=== PATIENT | male | born 1940 | race Caucasian/White ===

== ENCOUNTER 2016-09-22 17:37 | Emergency (ER) | payer MEDICARE, OTHER ==
[~2016-09-22 17:37] MED LIST: ALTA5 PO; ASA5GR PO; ASAB PO; BACDS PO; C5 PO; COUMADIN7.5 MG PO; CRESTOR10 PO; DIABETA5 PO; ELIQUIS 5 MG TAB5 MG PO; FARXIGA5 PO; FLOMAX4 PO; GLUCPH PO; ICY HOT16 % TOP; IMDUR60 PO; JANTOVEN10 MG PO; JANTOVEN7.5 MG PO; JANUMET XR 50-1 EAC1 PO; JANUMET1 TA1 PO; JANUMET1 TAB PO; LOP50 PO; LOPID6 PO; NEUR100 PO; NITROSTAT0.4 MG SL; NORCO1 TA1 PO; PLAVIX PO; PR25R PR; PRAV10 PO; SYN.05 PO; SYN.15 PO; SYNTHROID175 MCG PO; [UNRECOGNIZED DRUG - REMARK] TOP
[2016-09-22 18:52] LABS: BASOPHILS 0.2 %; BASOPHILS ABSOLUTE 0.02 10/3/uL (0.0-0.16); EOSINOPHILS 4.1 %; EOSINOPHILS ABSOLUTE 0.41 10/3/uL (0.0-0.53); HEMATOCRIT 42.6 % (40.0-51.0); IMMATURE GRANULOCYTES 0.2 %; IMMATURE GRANULOCYTES ABSOLUTE 0.02 10/3/uL (0.0-0.11); LYMPHOCYTES 8.5 %; LYMPHOCYTES ABSOLUTE 0.86 10/3/uL (0.67-4.30); MEAN CORPUS HGB CONC 32.9 g/dL (32.0-36.0); MEAN CORPUSCULAR HEMOGLOB 26.8 pg (26.0-34.0); MEAN CORPUSCULAR VOLUME 81.5 fL (80-100); MEAN PLATELET VOLUME 9.8 fL (9.2-13.0); MONOCYTES 6.5 %; MONOCYTES ABSOLUTE 0.66 10/3/uL (0.21-1.20); NEUTROPHILS 80.5 %; NEUTROPHILS ABSOLUTE 8.15 10/3/uL (2.02-8.40); PLATELET COUNT 209 10/3/uL (150-400); RBC DISTRIBUTION WIDTH 14.2 % (12.0-16.0); RED CELL COUNT 5.23 10/6/uL (4.7-6.1)
[2016-09-22 18:53] LABS: MANUAL DIFF NO %; WHITE BLOOD CELLS 10.1 10/3/uL (4.5-10.5)
[2016-09-22 19:08] LABS: A/G RATIO 0.9 (0.7-1.9); ALBUMIN 3.8 G/DL (3.5-5.0); CALCIUM, SERUM 9.5 MG/DL (8.5-10.4); CHLORIDE, SERUM 105 MMOL/L (96-112); CO2 (CARBON DIOXIDE) 23 MMOL/L (24-34); CREATININE 1.25 MG/DL (0.70-1.30); GFR AFRICAN AMERICAN 65 ML/MIN (>=60); GFR NON AFRICAN AMERICAN 56 ML/MIN (>=60); GLOBULIN 4.1 G/DL (2.5-4.1); GLUCOSE, SERUM 162 MG/DL (60-99); SGOT(AST) 25 U/L (5-40); SGPT(ALT) 27 U/L (5-65); SODIUM, SERUM 139 MMOL/L (135-148); TOTAL BILIRUBIN 1.1 MG/DL (0-1.2); TOTAL PROTEIN 7.9 G/DL (6.0-8.5)
[2016-09-22 19:09] LABS: ALKALINE PHOSPHATASE 54 U/L (45-117); BUN (BLOOD UREA NITROGEN) 15 MG/DL (6-23)
[2016-09-22 19:16] LABS: ASCORBIC ACID (UR NOT ORDER) NEG (NEG); BILIRUBIN, URINE NEGATIVE (NEG); ER URINALYSIS TAT 0 Hrs 23 Mins; KETONE, URINE NEGATIVE (NEG); LEUKOCYTE ESTERASE(NOT OR LARGE (NEG); NITRITE (URINE) POS (NEG)
[2016-09-22 19:22] LABS: WBC (NOT ORDERED) (RFLEX) > 182 (0-5)
[2016-09-22 19:24] LABS: BAND NEUTROPHILS 1 %; EOSINOPHILS 3 %; ER DIFF TAT 0 Hrs 37 Mins; LYMPHOCYTES 2 %; MONOCYTES 6 %; MONOCYTES ABSOLUTE (CALC) 0.61 10/3/uL (0.21-1.20); NEUTROPHILS ABSOLUTE (CALC) 8.99 10/3/uL (2.02-8.40); PLATELET ESTIMATE ADQ (ADEQUATE); RBC MORPHOLOGY NORM (NORMAL); SEGMENTED NEUTROPHIL (0) 88 %; TOTAL NUCLEATED CELLS 100
[2016-09-22 19:24] LABS: INFLUENZA A SCREEN NEGATIVE (NEGATIVE); INFLUENZA B SCREEN NEGATIVE (NEGATIVE)
[2016-12-17] MEDS ORDERED: ACET500CAP PO (23:00)
[2016-12-17] MEDS ORDERED: CLEOCIN300 MG PO (23:00)
[2016-12-17] MEDS ORDERED: PLAVIX PO (23:01)
[2016-12-17] MEDS ORDERED: LOPID6 PO (23:01)
[2016-12-17] MEDS ORDERED: JARDI10T PO (23:01)
[2016-12-17] MEDS ORDERED: PRAV10 PO (23:02)
[2016-12-17] MEDS ORDERED: IMDUR60 PO (23:02)
[2016-12-17] MEDS ORDERED: ALTACE10 MG PO (23:02)
[2016-12-17] MEDS ORDERED: DIABETA5 PO (23:02)
[2016-12-17] MEDS ORDERED: LEVOTHYROXIN150 MCG PO (23:02)
[2016-12-17] MEDS ORDERED: JANUMET1 TA1 PO (23:03)
[2016-12-17] MEDS ORDERED: COUMADIN7.5 MG PO (23:03)
[2016-12-17] MEDS ORDERED: FLOMAX4 PO (23:03)
[2016-12-17] MEDS ORDERED: C5 PO (23:03)
== END 2016-09-22 20:24 | disposition home or self-care (01) ==
LOC: ER 17:37
PROVIDERS: Emergency Medicine
DX: N39.0 Urinary tract infection, site not specified (principal); I10 Essential (primary) hypertension; E10.9 Type 1 diabetes mellitus without complications; Z87.891 Personal history of nicotine dependence; Z88.0 Allergy status to penicillin; Z79.01 Long term (current) use of anticoagulants; Z79.899 Other long term (current) drug therapy
CPT/HCPCS: 71010; 80053; 81001; 85025; 87040; 87070; 87077; 87086; 87186; 87804; 87880; 93005; 96374; 99284; A9270-GY

== ENCOUNTER 2016-10-22 16:51 | Inpatient (IN) | payer MEDICARE, OTHER ==
--- NOTE | ~2016-10-22 | CN ---
Consultation Report [facility] [address] [place]. [address] NAME: SASKIA ENNIS : 42 STATUS : ADM IN [facility]#: [id number] AGE: 76 ADM/REG DATE : 10/23/16 MR#: [id number] REPORT SERV DATE: 10/24/16 DICTATED BY: DEISY HAMILTON DATE: 10/24/16 REPORT STATUS : Draft TRANSCRIBED BY: MODL DATE: 10/24/16 GI CONSULTATION NOTE DATE OF CONSULTATION: 10/24/2016 REASON FOR CONSULTATION: Coffee ground emesis, dark stool. HISTORY OF PRESENT ILLNESS: Mr. Ennis is a 76-year-old white male with a history of coronary artery disease, SC in 2015, hypertension, peripheral vascular disease. He had been on Coumadin previously, but transitioned to Eliquis and remained on Plavix as well. He presented to [facility] with coffee ground, dark stool, and his hemoglobin and hematocrit today are 10.1 and 30.5, platelets 198. INR is 1.7. BUN creatinine ratio on admission was 44 and 1.47. It is currently 32 and 1.29. Denies any further overt bleeding. Denies any bright red blood. He has had colonoscopy in the past, but has been at least several years and cannot recall results. No prior endoscopy. PAST SURGICAL HISTORY: AAA repair, left lower extremity revascularization with Dr. Renee, cardiac ablation with Dr. Knight. PAST MEDICAL HISTORY: Coronary artery disease with status post SC, hypertension, peripheral vascular disease, atrial fibrillation. SOCIAL HISTORY: Quit tobacco in his 60s. Daughter is an ICU nurse at [employer]. FAMILY HISTORY: Prostate cancer, AAA, breast cancer, coronary artery disease. MEDICATIONS: Reviewed. ALLERGIES: REVIEWED. PHYSICAL EXAMINATION: VITAL SIGNS: The patient is afebrile. His vital signs are stable. GENERAL: The patient is awake, alert, and oriented x3. Well developed, well nourished, no acute distress. HEENT: Atraumatic, normocephalic. Anicteric. Mucous membranes moist. CARDIAC: S1, S2. CHEST: Clear. ABDOMEN: Soft, nontender, nondistended. Bowel sounds normoactive. LABORATORY DATA: Show WBC 5.7, hemoglobin 10.1, hematocrit 30.5, platelets 198. INR is 1.7. Sodium 136, potassium 4.5, chloride 107, bicarb 20, BUN 32, creatinine 1.29, glucose 146. IMPRESSION AND PLAN: Concern for upper gastrointestinal bleed given history of coffee grounds and dark stool while on Plavix as well as Eliquis. These have been held. Continue Consultation Report [facility] [address] [place]. [address] NAME: SASKIA ENNIS : 42 STATUS : ADM IN PAT#: [id number] AGE: 76 ADM/REG DATE : 10/23/16 MR#: [id number] REPORT SERV DATE: 10/24/16 DICTATED BY: DEISY HAMILTON DATE: 10/24/16 REPORT STATUS : Draft TRANSCRIBED BY: MODL DATE: 10/24/16 monitor serial H and H, and transfuse as needed. Continue Protonix drip. I will make n.p.o. after midnight for EGD with anesthesia to sedate tomorrow to follow my scheduled cases. I reviewed the indications, procedure, risks, benefits, and alternatives and he is agreeable to proceed. Questions and concerns were addressed. CS/SHIVA Deisy Hamilton MD / [id number] CC: MD Deepthi Aguilar Paul E
--- NOTE | ~2016-10-22 | HP ---
History And Physical [address] [address] NAME: SASKIA ENNIS : 42 STATUS : ADM [facility]y PAT#: [id number] AGE: 76 ADM/REG DATE : 10/22/16 MR#: [id number] REPORT SERV DATE: 10/23/16 DICTATED BY: ARIADNE MALONE DATE: 10/22/16 REPORT STATUS : Draft TRANSCRIBED BY: MODL DATE: 10/22/16 DATE OF ADMISSION: 10/22/2016 CHIEF COMPLAINT: Vomiting, coffee emesis, and dark stools. HISTORY OF PRESENT ILLNESS: The patient is a 76-year-old male with past medical history of DE, hypertension, PVD with multiple stents in leg and aneurysm in the aorta as well as recent history of atrial fibrillation with ablation, on anticoagulation with Coumadin, but was also on bridge therapy with Dr. Knight, with Eliquis. The patient was stopped on Eliquis earlier today, but after visit, he has had numerous amounts of vomiting with coffee emesis and dark stools subsequently. No dizziness. Symptoms have been constant and moderate. No pain or radiating symptoms. No diarrhea, shortness of breath, or palpitations. There is nothing worsening or relieving the symptoms. The patient has never had symptoms like this before. The patient has been feeling overall decreased on his general state for the last month. REVIEW OF SYSTEMS: For additional 10-point review of systems negative for that noted in the HPI. PAST MEDICAL HISTORY: As above. SURGERIES: AAA repair, left lower extremity revascularization by Dr. Renee, ablation by Dr. Knight. SOCIAL HISTORY: , accompanied by . Quit smoking in 60s. No alcohol or illicits. Daughter, ICU nurse at [employer]. FAMILY HISTORY: Prostate cancer, AAA, breast cancer, heart attack. ALLERGIES: PENICILLIN. EKG, 106, QTC 446. HOME MEDICATIONS: Tylenol, vitamin D, Plavix, Jardiance, Lopid, DiaBeta, Imdur, Synthroid, Nitrostat, pravastatin, ramipril, Janumet, Flomax, Coumadin, recently stop Eliquis today, but no intention restarting as this was for bridge therapy for subtherapeutic INR. PHYSICAL EXAMINATION: VITAL SIGNS: Blood pressure 129/73, temperature 98.3, pulse 97, respirations 16, O2 saturations 97% on room air. GENERAL: No acute distress. Calm, pleasant. HEAD: Normocephalic, atraumatic. EYES: No scleral icterus. EOMI. ENT: Nares patent. Tongue midline. Moist mucous membranes. RESPIRATORY: Clear to auscultation. No wheezes, rales, rhonchi. CV: Regular rate. No rubs. 1:1 beat pulse ratio. Cap refill less than 2 seconds. History And Physical [address] [place]. [address] NAME: SASKIA ENNIS : 42 STATUS : ADM Zachery PAT#: [id number] AGE: 76 ADM/REG DATE : 10/22/16 MR#: [id number] REPORT SERV DATE: 10/23/16 DICTATED BY: ARIADNE MALONE DATE: 10/22/16 REPORT STATUS : Draft TRANSCRIBED BY: SHIVA DATE: 10/22/16 GI: Soft, nontender, nondistended. Bowel sounds positive. : Deferred. MUSCULOSKELETAL: Moves all extremities x4. SKIN: Warm and dry. A mild paleness in nail beds. LYMPH: No cervical lymphadenopathy. HEME: No bleeding or bruising. NEURO: Alert and oriented. Moves all extremities x4. Mild decreased hearing acuity. PSYCH: Appropriate mood and affect. LABORATORY DATA: CMP: Sodium 136, potassium 4.9, chloride 106, BUN and creatinine 44 and 1.47, carbon dioxide 21, glucose 204. AST and LFTs within normal limits. CBC: WBC count 7.8, H and H 13.2 and 39.7, platelets 239. INR 3.2. ASSESSMENT: 1. Acute gastrointestinal bleed. 2. Supratherapeutic INR. 3. Acute kidney injury. 4. Diabetes, type 2. 5. Atrial fibrillation. PLAN: 1. For GI bleed. H and H, fair right now, but we will continue trending Protonix drip with likely upper sources in a patient with dysphagia, coffee emesis. Gentle IV fluids with cardiac history. The patient has been on triple therapy with Plavix. Eliquis for bridge. For INR on Coumadin and was supratherapeutic on Coumadin at 3.6, currently 3.2. Hold Eliquis and Coumadin. The patient does have significant peripheral arterial disease and coronary disease history. 2. Supratherapeutic INR. Hold medications and we will stop dual anticoagulation. 3. Acute kidney injury. Monitor IV fluids and diabetes type 2, sliding scale insulin. 4. Atrial fibrillation. Sinus tachycardia. Monitor lytes, on warfarin. DDN/MODL Ariadne Malone MD / [id number] CC: MD Harsh Mullins
--- NOTE | ~2016-10-22 | DS ---
Discharge Summary [facility] [address] [place]. [address] NAME: SASKIA ENNIS : 42 STATUS : DIS IN PAT#: [id number] AGE: 76 ADM/REG DATE : 10/23/16 MR#: [id number] REPORT SERV DATE: 10/27/16 DICTATED BY: ANTHONY PASCAL DATE: 10/26/16 REPORT STATUS : Draft TRANSCRIBED BY: MODL DATE: 10/26/16 ADMISSION DATE: 10/23/2016 DISCHARGE DATE: 10/26/2016 PROCEDURES DONE: On 10/24/2016, upper GI by Dr. Chase. FINDINGS: Examining esophagus was normal. Z-line was found to be 46 cm from the incisors. Mild inflammation characterized by erythema was found at the gastric body and in the gastric antrum. No biopsies or other specimens were collected for this exam. Three small angioectasias with bleeding were found in the gastric body. Hemostasis was achieved with administration of argon plasma coagulation. No estimated blood loss. A sessile 7 mm polyp with no stigma of recent bleeding was found in the gastric fundus. Biopsies were taken with cold forceps for histology. Estimated blood loss, none. Duodenal bulb and second part of duodenum were normal. No biopsies and other specimens were collected for this exam. Impression: Normal esophagus. Z-line at 46 cm from the incisors. Gastritis. No specimens collected. Three bleeding angioectasias in the stomach. A single gastric polyp biopsies. Normal duodenal bulb and second part of duodenum. No specimen collected. CONSULT: Darcy Chase M.D., for GI. REASON FOR ADMISSION: Vomiting, coffee emesis, and dark stools. HISTORY OF HOSPITAL STAY: A 76-year-old white male with past medical history of coronary artery disease status post ND, peripheral vascular disease with multiple stents in the leg, hypertension, history of AAA, history of AFib status post ablation on Coumadin, presenting with vomiting, coffee emesis, and dark stools. The patient was admitted for further evaluation of hematemesis. The patient had serial H and H done which showed no significant blood requiring transfusion. The patient's Coumadin had to be held during the hospital stay in order to do the EGD safely. GI was consulted. The patient underwent EGD on 10/24/2016. The cause of the bleed was secondary to three angioectasias in the gastric antrum. The patient underwent cauterization without any complications. More importantly, the patient has been advised to follow up with his Vascular surgeon, who prescribed him the Coumadin. Questionable, we will need to have a discussion whether continuing Coumadin with a history of AVM malformation. DISPOSITION: The patient is feeling, no complaints. ACTIVITY: As tolerated. DIET: Diabetic. INSTRUCTIONS UPON DISCHARGE: 1. The patient to follow up with Vascular within one to two weeks time. 2. The patient to follow up with GI within one to two weeks time. Discharge Summary [facility] [address] [facility] [place]. [address] NAME: SASKIA ENNIS : 42 STATUS : DIS IN PAT#: [id number] AGE: 76 ADM/REG DATE : 10/23/16 MR#: [id number] REPORT SERV DATE: 10/27/16 DICTATED BY: ANTHONY PASCAL DATE: 10/26/16 REPORT STATUS : Draft TRANSCRIBED BY: SHIVA DATE: 10/26/16 MEDICATIONS UPON DISCHARGE: 1. Lopid 600 mg p.o. q.h.s. 2. Imdur 60 mg p.o. daily. 3. Synthroid 150 mcg daily. 4. Pravachol 10 mg p.o. q.h.s. 5. Altace 10 mg p.o. q.h.s. 6. Flomax 0.4 mg p.o. q.h.s. 7. Coumadin 7.5 mg Saturday, Saturday, , and Saturday. 8. Glyburide 5 mg p.o. q.h.s. 9. Plavix 75 mg p.o. daily. 10.Nitro sublingual p.r.n. 11.Janumet mg p.o. with breakfast and supper. 12.Coumadin 5 mg Saturday, Saturday, and Saturday. 13.Jardiance 10 mg p.o. daily. 14.Vitamin D 5000 units p.o. q.2 days. 15.Tylenol 650 mg p.o. daily p.r.n. DIAGNOSES UPON DISCHARGE: 1. Hematemesis and melena secondary to arteriovenous malformation. 2. Arteriovenous malformation. 3. 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 4. Atrial fibrillation. 5. Peripheral vascular disease status post stents. 6. Hypertension. 7. Diabetes type 2. 8. Coronary artery disease status post myocardial infarction. FBJ/MODL Anthony Pascal MD / [id number] CC: MD Harsh Aguilar, PHD
--- NOTE | ~2016-10-22 | EGD ---
EGD REPORT [facility] [address] [place] [address] NAME: SASKIA ENNIS : 42 STATUS : ADM IN PAT#: [id number] AGE: 76 ADM/REG DATE : 10/23/16 MR#: [id number] REPORT SERV DATE: 10/25/16 DICTATED BY: DEISY HAMILTON DATE: 10/25/16 REPORT STATUS : Draft TRANSCRIBED BY: [employer] DATE: 10/25/16 [facility] Patient Name: Saskia Ennis Date of : 1940 Attending MD: DEISY HAMILTON, Procedure Date No Time: 10/25/2016 Procedure: Upper GI endoscopy Indications: Anemia, Coffee-ground emesis Referring MD: Harsh Lacey MD Medicines: Propofol per Anesthesia Complications: No immediate complications. Estimated blood loss: None. Procedure: Pre-Anesthesia Assessment: - ASA Grade Assessment: III - A patient with severe systemic disease. After obtaining informed consent, the endoscope was passed under direct vision. Throughout the procedure, the patient's blood pressure, pulse, and oxygen saturations were monitored continuously. The GIF [id number] was introduced through the mouth, and advanced to the second part of duodenum. The upper GI endoscopy was accomplished with ease. The patient tolerated the procedure well. Findings: The examined esophagus was normal. The Z-line was found 46 cm from the incisors. Mild inflammation characterized by erythema was found in the gastric body and in the gastric antrum. No biopsies or other specimens were collected for this exam. Three small angioectasias with bleeding were found in the gastric body. Hemostasis was achieved with administration of argon plasma coagulation. Estimated blood loss: none. A single 7 mm sessile polyp with no stigmata of recent bleeding was found in the gastric fundus. Biopsies were taken with a cold forceps for histology. Estimated blood loss: none. The duodenal bulb and 2nd part of the duodenum were normal. No biopsies or other specimens were collected for this exam. Impression: - Normal esophagus. - Z-line 46 cm from the incisors. - Gastritis. No specimens collected. - Three bleeding angioectasias in the stomach. - A single gastric polyp. Biopsied. - Normal duodenal bulb and 2nd part of the duodenum. No specimens collected. EGD REPORT [address] [place]. [address] NAME: SASKIA ENNIS : 42 STATUS : ADM IN [facility]#: [id number] AGE: 76 ADM/REG DATE : 10/23/16 MR#: [id number] REPORT SERV DATE: 10/25/16 DICTATED BY: DEISY HAMILTON DATE: 10/25/16 REPORT STATUS : Draft TRANSCRIBED BY: [employer] DATE: 10/25/16 Recommendation: - Return patient to [facility] for [facility] care. - Full liquid diet today. - Continue present medications. - Await pathology results. Procedure Code(s): --- Professional --- 32695, Esophagogastroduodenoscopy, flexible, transoral; with biopsy, single or multiple Diagnosis Code(s): --- Professional --- K29.70, Gastritis, unspecified, without bleeding K31.811, Angiodysplasia of stomach and duodenum with bleeding K31.7, Polyp of stomach and duodenum D64.9, Anemia, unspecified K92.0, Hematemesis CPT copyright 2013 [employer]. All rights reserved. The codes documented in this report are preliminary and upon rotary shear operator review may be revised to meet current compliance requirements. DEISY HAMILTON, 10/25/2016 2:05 PM This report has been signed electronically. Number of Addenda: 0 Note Initiated On: 10/25/2016 1:40 PM Scope Withdrawal Time 0 hours 0 minutes 0 seconds [address] [id number]
[2016-10-22 17:14] LABS: BASOPHILS 0.1 %; BASOPHILS ABSOLUTE 0.01 10/3/uL (0.0-0.16); EOSINOPHILS 0.1 %; EOSINOPHILS ABSOLUTE 0.01 10/3/uL (0.0-0.53); ER CBC TAT 0 Hrs 05 Mins; HEMATOCRIT 39.7 % (40.0-51.0); HEMOGLOBIN 13.2 g/dL (13.6-17.8); IMMATURE GRANULOCYTES 0.4 %; IMMATURE GRANULOCYTES ABSOLUTE 0.03 10/3/uL (0.0-0.11); LYMPHOCYTES 15.6 %; LYMPHOCYTES ABSOLUTE 1.22 10/3/uL (0.67-4.30); MEAN CORPUS HGB CONC 33.2 g/dL (32.0-36.0); MEAN CORPUSCULAR HEMOGLOB 27.1 pg (26.0-34.0); MEAN CORPUSCULAR VOLUME 81.5 fL (80-100); MEAN PLATELET VOLUME 9.4 fL (9.2-13.0); MONOCYTES 6.3 %; MONOCYTES ABSOLUTE 0.49 10/3/uL (0.21-1.20); NEUTROPHILS 77.5 %; NEUTROPHILS ABSOLUTE 6.06 10/3/uL (2.02-8.40); PLATELET COUNT 239 10/3/uL (150-400); RBC DISTRIBUTION WIDTH 15.3 % (12.0-16.0); RED CELL COUNT 4.87 10/6/uL (4.7-6.1); WHITE BLOOD CELLS 7.8 10/3/uL (4.5-10.5)
[2016-10-22 17:21] LABS: MANUAL DIFF NO %
[2016-10-22 17:27] LABS: INTERNATIONAL NORMAL RATI 3.2 UNITS (-); PARTIAL THROMBO TIME 47.2 SEC (22.5-37.2)
[2016-10-22 17:29] LABS: A/G RATIO 0.8 (0.7-1.9); ALBUMIN 3.7 G/DL (3.5-5.0); ALKALINE PHOSPHATASE 46 U/L (45-117); CALCIUM, SERUM 9.9 MG/DL (8.5-10.4); CHLORIDE, SERUM 106 MMOL/L (96-112); CO2 (CARBON DIOXIDE) 21 MMOL/L (24-34); CREATININE 1.47 MG/DL (0.70-1.30); GFR AFRICAN AMERICAN 53 ML/MIN (>=60); GFR NON AFRICAN AMERICAN 46 ML/MIN (>=60); GLOBULIN 4.4 G/DL (2.5-4.1); SGOT(AST) 9 U/L (5-40); SGPT(ALT) 17 U/L (5-65); SODIUM, SERUM 136 MMOL/L (135-148); TOTAL PROTEIN 8.1 G/DL (6.0-8.5)
[2016-10-22 17:32] LABS: BUN (BLOOD UREA NITROGEN) 44 MG/DL (6-23); GLUCOSE, SERUM 204 MG/DL (60-99); POTASSIUM, SERUM 4.9 MMOL/L (3.5-5.3); TOTAL BILIRUBIN 0.4 MG/DL (0-1.2)
[2016-10-22 17:40] LABS: PROTIME (NOT ORD) 32.7 SEC (12.0-14.5)
[2016-10-22 17:50] LABS: BAND NEUTROPHILS 2 %; ER DIFF TAT 0 Hrs 41 Mins; LYMPHOCYTES 16 %; LYMPHOCYTES ABSOLUTE (CALC) 1.25 10/3/uL (0.67-4.30); MONOCYTES 5 %; MONOCYTES ABSOLUTE (CALC) 0.39 10/3/uL (0.21-1.20); NEUTROPHILS ABSOLUTE (CALC) 6.16 10/3/uL (2.02-8.40); PLATELET ESTIMATE ADQ (ADEQUATE); RBC MORPHOLOGY NORM (NORMAL); SEGMENTED NEUTROPHIL (0) 77 %; TOTAL NUCLEATED CELLS 100
[2016-10-22] MEDS ORDERED: JANUMET1 TA1 PO (20:03)
[2016-10-22] MEDS ORDERED: C5 PO (20:06)
[2016-10-22] MEDS ORDERED: ALTACE10 MG PO (20:09)
[2016-10-22] MEDS ORDERED: JARDI10T PO (20:11)
[2016-10-22] MEDS ORDERED: D 5000 PO (20:12)
[2016-10-22] MEDS ORDERED: T PO (20:13)
[2016-10-22 23:48] LABS: HEMATOCRIT 37.5 % (40.0-51.0); HEMOGLOBIN 12.6 g/dL (13.6-17.8)
[2016-10-23 03:55] LABS: BASOPHILS 0.5 %; BASOPHILS ABSOLUTE 0.03 10/3/uL (0.0-0.16); EOSINOPHILS 0.6 %; EOSINOPHILS ABSOLUTE 0.04 10/3/uL (0.0-0.53); HEMATOCRIT 36.6 % (40.0-51.0); IMMATURE GRANULOCYTES 0.3 %; IMMATURE GRANULOCYTES ABSOLUTE 0.02 10/3/uL (0.0-0.11); LYMPHOCYTES 35.9 %; LYMPHOCYTES ABSOLUTE 2.36 10/3/uL (0.67-4.30); MANUAL DIFF NO %; MEAN CORPUS HGB CONC 32.8 g/dL (32.0-36.0); MEAN CORPUSCULAR HEMOGLOB 26.6 pg (26.0-34.0); MEAN CORPUSCULAR VOLUME 81.2 fL (80-100); MEAN PLATELET VOLUME 9.3 fL (9.2-13.0); MONOCYTES 7.1 %; MONOCYTES ABSOLUTE 0.47 10/3/uL (0.21-1.20); NEUTROPHILS 55.6 %; NEUTROPHILS ABSOLUTE 3.66 10/3/uL (2.02-8.40); PLATELET COUNT 239 10/3/uL (150-400); RED CELL COUNT 4.51 10/6/uL (4.7-6.1); WHITE BLOOD CELLS 6.6 10/3/uL (4.5-10.5)
[2016-10-23 04:00] LABS: INTERNATIONAL NORMAL RATI 2.4 UNITS (-)
[2016-10-23 04:03] LABS: PROTIME (NOT ORD) 25.8 SEC (12.0-14.5)
[2016-10-23 04:12] LABS: A/G RATIO 0.9 (0.7-1.9); ALBUMIN 3.4 G/DL (3.5-5.0); ALKALINE PHOSPHATASE 38 U/L (45-117); CALCIUM, SERUM 9.3 MG/DL (8.5-10.4); CHLORIDE, SERUM 106 MMOL/L (96-112); CO2 (CARBON DIOXIDE) 21 MMOL/L (24-34); CREATININE 1.19 MG/DL (0.70-1.30); GFR AFRICAN AMERICAN 69 ML/MIN (>=60); GFR NON AFRICAN AMERICAN 59 ML/MIN (>=60); GLOBULIN 3.8 G/DL (2.5-4.1); POTASSIUM, SERUM 4.3 MMOL/L (3.5-5.3); SGOT(AST) 6 U/L (5-40); SGPT(ALT) 15 U/L (5-65); SODIUM, SERUM 137 MMOL/L (135-148); TOTAL BILIRUBIN 0.6 MG/DL (0-1.2); TOTAL PROTEIN 7.2 G/DL (6.0-8.5)
[2016-10-23 04:18] LABS: BUN (BLOOD UREA NITROGEN) 48 MG/DL (6-23); GLUCOSE, SERUM 152 MG/DL (60-99)
[2016-10-23 08:31] LABS: HEMATOCRIT 35.8 % (40.0-51.0); HEMOGLOBIN 11.8 g/dL (13.6-17.8)
[2016-10-23 15:15] LABS: HEMATOCRIT 32.9 % (40.0-51.0); HEMOGLOBIN 10.9 g/dL (13.6-17.8)
[2016-10-24 00:06] LABS: HEMATOCRIT 28.5 % (40.0-51.0); HEMOGLOBIN 9.4 g/dL (13.6-17.8)
[2016-10-24 04:27] LABS: BASOPHILS 0.4 %; BASOPHILS ABSOLUTE 0.02 10/3/uL (0.0-0.16); EOSINOPHILS 13.2 %; EOSINOPHILS ABSOLUTE 0.75 10/3/uL (0.0-0.53); HEMATOCRIT 30.5 % (40.0-51.0); HEMOGLOBIN 10.1 g/dL (13.6-17.8); IMMATURE GRANULOCYTES 0.4 %; IMMATURE GRANULOCYTES ABSOLUTE 0.02 10/3/uL (0.0-0.11); LYMPHOCYTES 33.9 %; LYMPHOCYTES ABSOLUTE 1.93 10/3/uL (0.67-4.30); MEAN CORPUS HGB CONC 33.1 g/dL (32.0-36.0); MEAN CORPUSCULAR VOLUME 81.6 fL (80-100); MEAN PLATELET VOLUME 8.7 fL (9.2-13.0); MONOCYTES 8.1 %; MONOCYTES ABSOLUTE 0.46 10/3/uL (0.21-1.20); NEUTROPHILS ABSOLUTE 2.52 10/3/uL (2.02-8.40); PLATELET COUNT 198 10/3/uL (150-400); RBC DISTRIBUTION WIDTH 14.8 % (12.0-16.0); RED CELL COUNT 3.74 10/6/uL (4.7-6.1); WHITE BLOOD CELLS 5.7 10/3/uL (4.5-10.5)
[2016-10-24 04:28] LABS: MANUAL DIFF NO %
[2016-10-24 04:33] LABS: INTERNATIONAL NORMAL RATI 1.7 UNITS (-)
[2016-10-24 04:44] LABS: ALBUMIN 3.3 G/DL (3.5-5.0); ALKALINE PHOSPHATASE 36 U/L (45-117); CALCIUM, SERUM 8.4 MG/DL (8.5-10.4); CHLORIDE, SERUM 107 MMOL/L (96-112); CO2 (CARBON DIOXIDE) 20 MMOL/L (24-34); CREATININE 1.29 MG/DL (0.70-1.30); GFR AFRICAN AMERICAN 62 ML/MIN (>=60); GFR NON AFRICAN AMERICAN 54 ML/MIN (>=60); GLOBULIN 3.3 G/DL (2.5-4.1); GLUCOSE, SERUM 146 MG/DL (60-99); PHOSPHORUS, SERUM 2.8 MG/DL (2.5-4.5); POTASSIUM, SERUM 4.5 MMOL/L (3.5-5.3); SGOT(AST) 10 U/L (5-40); SGPT(ALT) 15 U/L (5-65); SODIUM, SERUM 136 MMOL/L (135-148); TOTAL BILIRUBIN 0.5 MG/DL (0-1.2); TOTAL PROTEIN 6.6 G/DL (6.0-8.5)
[2016-10-24 04:51] LABS: BUN (BLOOD UREA NITROGEN) 32 MG/DL (6-23)
[2016-10-25 05:47] LABS: BASOPHILS 0.4 %; BASOPHILS ABSOLUTE 0.02 10/3/uL (0.0-0.16); EOSINOPHILS 13.5 %; EOSINOPHILS ABSOLUTE 0.69 10/3/uL (0.0-0.53); HEMOGLOBIN 9.8 g/dL (13.6-17.8); IMMATURE GRANULOCYTES 0.4 %; IMMATURE GRANULOCYTES ABSOLUTE 0.02 10/3/uL (0.0-0.11); LYMPHOCYTES 32.3 %; LYMPHOCYTES ABSOLUTE 1.65 10/3/uL (0.67-4.30); MEAN CORPUS HGB CONC 33.8 g/dL (32.0-36.0); MEAN CORPUSCULAR HEMOGLOB 27.2 pg (26.0-34.0); MEAN CORPUSCULAR VOLUME 80.6 fL (80-100); MEAN PLATELET VOLUME 9.2 fL (9.2-13.0); MONOCYTES ABSOLUTE 0.36 10/3/uL (0.21-1.20); NEUTROPHILS 46.4 %; NEUTROPHILS ABSOLUTE 2.37 10/3/uL (2.02-8.40); PLATELET COUNT 210 10/3/uL (150-400); RBC DISTRIBUTION WIDTH 15.1 % (12.0-16.0); WHITE BLOOD CELLS 5.1 10/3/uL (4.5-10.5)
[2016-10-25 05:49] LABS: MANUAL DIFF NO %
[2016-10-25 05:50] LABS: INTERNATIONAL NORMAL RATI 1.4 UNITS (-)
[2016-10-25 05:55] LABS: ALBUMIN 3.3 G/DL (3.5-5.0); ALKALINE PHOSPHATASE 35 U/L (45-117); CALCIUM, SERUM 9.2 MG/DL (8.5-10.4); CHLORIDE, SERUM 107 MMOL/L (96-112); CO2 (CARBON DIOXIDE) 21 MMOL/L (24-34); GFR AFRICAN AMERICAN 76 ML/MIN (>=60); GFR NON AFRICAN AMERICAN 65 ML/MIN (>=60); GLOBULIN 3.3 G/DL (2.5-4.1); GLUCOSE, SERUM 154 MG/DL (60-99); PHOSPHORUS, SERUM 2.4 MG/DL (2.5-4.5); POTASSIUM, SERUM 4.2 MMOL/L (3.5-5.3); PROTIME (NOT ORD) 16.7 SEC (12.0-14.5); SGOT(AST) 13 U/L (5-40); SGPT(ALT) 20 U/L (5-65); SODIUM, SERUM 137 MMOL/L (135-148); TOTAL BILIRUBIN 0.4 MG/DL (0-1.2); TOTAL PROTEIN 6.6 G/DL (6.0-8.5)
[2016-10-25 05:56] LABS: BUN (BLOOD UREA NITROGEN) 20 MG/DL (6-23)
[2016-10-26 05:08] LABS: BASOPHILS 0.4 %; BASOPHILS ABSOLUTE 0.02 10/3/uL (0.0-0.16); EOSINOPHILS 8.8 %; EOSINOPHILS ABSOLUTE 0.47 10/3/uL (0.0-0.53); HEMATOCRIT 30.4 % (40.0-51.0); HEMOGLOBIN 10.3 g/dL (13.6-17.8); IMMATURE GRANULOCYTES 0.2 %; IMMATURE GRANULOCYTES ABSOLUTE 0.01 10/3/uL (0.0-0.11); INTERNATIONAL NORMAL RATI 1.3 UNITS (-); LYMPHOCYTES 33.5 %; LYMPHOCYTES ABSOLUTE 1.79 10/3/uL (0.67-4.30); MEAN CORPUS HGB CONC 33.9 g/dL (32.0-36.0); MEAN CORPUSCULAR HEMOGLOB 27.6 pg (26.0-34.0); MEAN CORPUSCULAR VOLUME 81.5 fL (80-100); MEAN PLATELET VOLUME 9.1 fL (9.2-13.0); MONOCYTES ABSOLUTE 0.48 10/3/uL (0.21-1.20); NEUTROPHILS 48.1 %; NEUTROPHILS ABSOLUTE 2.58 10/3/uL (2.02-8.40); PLATELET COUNT 218 10/3/uL (150-400); PROTIME (NOT ORD) 16.2 SEC (12.0-14.5); RBC DISTRIBUTION WIDTH 15.3 % (12.0-16.0); RED CELL COUNT 3.73 10/6/uL (4.7-6.1); WHITE BLOOD CELLS 5.4 10/3/uL (4.5-10.5)
[2016-10-26 05:11] LABS: MANUAL DIFF NO %
[2016-10-26 05:34] LABS: ALBUMIN 3.2 G/DL (3.5-5.0); ALKALINE PHOSPHATASE 38 U/L (45-117); CALCIUM, SERUM 8.9 MG/DL (8.5-10.4); CHLORIDE, SERUM 108 MMOL/L (96-112); CO2 (CARBON DIOXIDE) 21 MMOL/L (24-34); GFR AFRICAN AMERICAN 68 ML/MIN (>=60); GFR NON AFRICAN AMERICAN 59 ML/MIN (>=60); GLOBULIN 3.3 G/DL (2.5-4.1); GLUCOSE, SERUM 156 MG/DL (60-99); PHOSPHORUS, SERUM 2.5 MG/DL (2.5-4.5); POTASSIUM, SERUM 4.3 MMOL/L (3.5-5.3); SGOT(AST) 12 U/L (5-40); SGPT(ALT) 21 U/L (5-65); SODIUM, SERUM 139 MMOL/L (135-148); TOTAL BILIRUBIN 0.4 MG/DL (0-1.2); TOTAL PROTEIN 6.5 G/DL (6.0-8.5)
[2016-10-26 05:35] LABS: BUN (BLOOD UREA NITROGEN) 14 MG/DL (6-23)
[2016-12-17] MEDS ORDERED: CLEOCIN300 MG PO (23:00)
[2016-12-17] MEDS ORDERED: ACET500CAP PO (23:00)
[2016-12-17] MEDS ORDERED: LOPID6 PO (23:01)
[2016-12-17] MEDS ORDERED: JARDI10T PO (23:01)
[2016-12-17] MEDS ORDERED: PLAVIX PO (23:01)
[2016-12-17] MEDS ORDERED: ALTACE10 MG PO (23:02)
[2016-12-17] MEDS ORDERED: IMDUR60 PO (23:02)
[2016-12-17] MEDS ORDERED: DIABETA5 PO (23:02)
[2016-12-17] MEDS ORDERED: LEVOTHYROXIN150 MCG PO (23:02)
[2016-12-17] MEDS ORDERED: PRAV10 PO (23:02)
[2016-12-17] MEDS ORDERED: C5 PO (23:03)
[2016-12-17] MEDS ORDERED: COUMADIN7.5 MG PO (23:03)
[2016-12-17] MEDS ORDERED: FLOMAX4 PO (23:03)
[2016-12-17] MEDS ORDERED: JANUMET1 TA1 PO (23:03)
== END 2016-10-26 15:12 | disposition home or self-care (01) | DRG 378 ==
LOC: ER 16:51 → 7NO 20:41
PROVIDERS: Emergency Medicine; Hospitalist; Internal Medicine Gastroenterology; Student in an Organized Health Care Education/Training Program
PROC: 0DB68ZX Excision of Stomach, Via Natural or Artificial Opening Endoscopic, Diagnostic (ICD-10-PCS; principal; 2016-10-25 13:53)
PROC: 0W3P8ZZ Control Bleeding in Gastrointestinal Tract, Via Natural or Artificial Opening Endoscopic (ICD-10-PCS; 2016-10-25 13:53)
DX: K31.811 Angiodysplasia of stomach and duodenum with bleeding (principal); N17.9 Acute kidney failure, unspecified; I48.91 Unspecified atrial fibrillation; E11.9 Type 2 diabetes mellitus without complications; D64.9 Anemia, unspecified; I10 Essential (primary) hypertension; K31.7 Polyp of stomach and duodenum; K29.50 Unspecified chronic gastritis without bleeding; I73.9 Peripheral vascular disease, unspecified; I71.4 Abdominal aortic aneurysm, without rupture; I25.10 Atherosclerotic heart disease of native coronary artery without angina pectoris; I25.2 Old myocardial infarction; Z87.891 Personal history of nicotine dependence; Z79.02 Long term (current) use of antithrombotics/antiplatelets; Z95.820 Peripheral vascular angioplasty status with implants and grafts; Z88.0 Allergy status to penicillin
CPT/HCPCS: 36415; 80053; 82962; 83036; 83605; 83735; 84100; 84484; 85014; 85018; 85025; 85610; 85730; 86850; 86900; 86901; 88305; 88342; 93005; 99285; A9270-GY; C9113; J2405

== ENCOUNTER 2016-10-31 07:44 | Inpatient (IN) | payer MEDICARE, OTHER ==
--- NOTE | ~2016-10-31 | DS ---
Discharge Summary [facility] [address] [facility] [place]. [address] NAME: SASKIA ENNIS : 42 STATUS : DIS IN PAT#: [id number] AGE: 76 ADM/REG DATE : 11/01/16 MR#: [id number] REPORT SERV DATE: 11/04/16 DICTATED BY: ANTHONY PASCAL DATE: 11/03/16 REPORT STATUS : Draft TRANSCRIBED BY: MODL DATE: 11/03/16 ADMISSION DATE: 11/01/2016 DISCHARGE DATE: 11/03/2016 PROCEDURES DONE: 1. On 10/31/2016 chest x-ray: No acute process demonstrated radiographically. 2. On 11/02/2016 CT abdomen and pelvis without contrast. No GI obstruction. Oral contrast reaches the descending colon for this exam. A 0.3 to 0.4 cm proximal left ureterolith present with mild left-sided hydronephrosis. A 0.6 nonobstructing right nephrolith. Aorto bi-iliac stent graft with negative abdominal aortic aneurysm of 5.5 cm, mildly increased from 2014. An endoleak may be present. Cholelithiasis without biliary obstruction. Three-vessel coronary artery atherosclerosis and/or stenting. Mild bibasilar atelectasis. Prostate hypertrophy. 3. On 11/02/2016, gastric emptying study: Normal gastric emptying study. REASON FOR ADMISSION: Nausea and weakness. HISTORY OF HOSPITAL STAY: A 76-year-old white male with past medical history of anemia secondary to GI bleed from AVM malformation, atrial fibrillation, abdominal aortic aneurysm status post graft, peripheral vascular disease status post stent, hypertension, diabetes type 2, presenting with nausea with weakness. The patient was admitted due to nausea and vomiting. The patient was discharged with Protonix secondary to AVM malformation that was discovered from a previous admission. The patient at that time was taking aspirin, Plavix, Eliquis and Coumadin. At which point, GI was consulted at that time and did a cauterization of the AVMs which resulted in a stable H and H on discharge. However, the patient comes back due to the nausea and vomiting causing weakness as well as decreased p.o. intake. The patient also was noted to have a UTI secondary to E. coli. The patient was started on 11/01/2016 on Levaquin and received approximately three doses of Levaquin. More importantly, the patient's nausea and vomiting has subsided once the patient stopped taking Protonix. GI has agreed that the patient should be put on Pepcid instead to decrease the effects of nausea and vomiting. During his hospital stay, the patient was able to tolerate Pepcid without any nausea and vomiting. DISPOSITION: The patient is feeling fine, no complaints. No nausea and vomiting. ACTIVITY: As tolerated. DIET: Diabetic. INSTRUCTIONS UPON DISCHARGE: 1. The patient is to follow up with Dr. Chase within two weeks' time. 2. The patient is to follow with primary care within two weeks' time. MEDICATIONS UPON DISCHARGE: 1. Pepcid 20 mg p.o. b.i.d., dispensed 60. 2. Carafate 1 g p.o. before meals and at bedtime, dispensed 120. Discharge Summary [address] [address] NAME: SASKIA ENNIS : 42 STATUS : DIS IN PAT#: [id number] AGE: 76 ADM/REG DATE : 11/01/16 MR#: [id number] REPORT SERV DATE: 11/04/16 DICTATED BY: ANTHONY PASCAL DATE: 11/03/16 REPORT STATUS : Draft TRANSCRIBED BY: SHIVA DATE: 11/03/16 3. Levaquin 750 mg p.o. daily, dispensed 3. 4. Plavix 75 mg p.o. daily. 5. Coumadin 5 mg Saturday, Saturday, and Saturday. 6. Vitamin D 5,000 p.o. q.2 days. 7. Imdur 60 mg p.o. daily. 8. Synthroid 150 mg b.i.d. 9. Altace 10 mg p.o. daily. 10.Flomax 0.4 mg p.o. q.h.s. 11.Coumadin 7.5 mg Saturday, Saturday, , and Saturday. 12.Lopid 6600 mg p.o. q.h.s. 13.DiaBeta 5 mg p.o. q.h.s. 14.Nitroglycerin sublingual p.r.n. 15.Pravachol 10 mg p.o. q.h.s. 16.Janumet 50/500 mg one tablet p.o. with breakfast and supper. 17.Jardiance 10 mg p.o. daily. 18.Tylenol 325 mg p.o. daily p.r.n. DIAGNOSES UPON DISCHARGE: 1. Nausea and vomiting secondary to urinary tract infection versus Protonix. 2. Urinary tract infection secondary to Escherichia coli, sensitive to Levaquin. 3. Protonix-induced nausea and vomiting. 4. Diabetes type 2. 5. Hematemesis and melena secondary to arteriovenous malformation. 6. Arteriovenous malformation. 7. 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 8. Atrial fibrillation. 9. Hypertension. 10.Diabetes type 2. 11.Coronary artery disease, status post myocardial infarction. FBJ/MODL Anthony Pascal MD / [id number] CC: Ld Larson Jr, MD Harsh Lacey, PHD
--- NOTE | ~2016-10-31 | HP ---
History And Physical [place] [id number] [place]. [address] NAME: SASKIA ENNIS : 42 STATUS : ADM Zachery PAT#: [id number] AGE: 76 ADM/REG DATE : 10/31/16 MR#: [id number] REPORT SERV DATE: 10/31/16 DICTATED BY: CHRIS PANTOJA DATE: 10/31/16 REPORT STATUS : Draft TRANSCRIBED BY: MODL DATE: 10/31/16 DATE OF ADMISSION: 10/31/2016 ATTENDING PHYSICIAN: Dr. Alarcon. REASON FOR ADMISSION: Nausea and weakness. HISTORY OF PRESENT ILLNESS: This is a 76-year-old white male, who was discharged from the hospital on 10/27/2016, by Dr. Alarcon. He was discharged after hematemesis and EGD by Dr. Chase discovered AVMs. He had some anemia secondary to this atrial fibrillation, peripheral vascular disease with stenting, coronary artery disease with one stent, hypertension, diabetes type 2, and coagulopathy. He does have a history of a stent graft for abdominal aortic aneurysm. He comes back to the emergency room with nausea and vomiting. He believes it is the stomach medicine that he was given with Protonix. He has had diabetes for a long time. 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 His creatinine is up slightly from before at 1.35. He is on Janumet. Metformin gives him diarrhea he knows. Review of his hematocrit indicated that up until September, his hematocrit was in the 40s, dropped to 28 with the GI bleeding, and now it has recovered back up to 33. His creatinine is a little bit high and he may be somewhat dehydrated from the vomiting as well. Therefore he was admitted to observation to try to get under control, holding medications, and adding Reglan to help with his nausea and vomiting. PAST MEDICAL HISTORY: GI bleeding recently with AVMs noted by Dr. Chase. He had bleeding and he blames the Eliquis now. He has had been on Coumadin for many years because of his atrial fibrillation. He is followed by Dr. Knight. He had a stent graft followed by Dr. Renee with revascularization for abdominal aortic aneurysm and had an ablation by Dr. Knight to try to control his heart rate. SOCIAL HISTORY: He claims he has never been . He has had many concubines in the past but has never them and the relationships are always short lived. He quit smoking in the 60s. He is accompanied by his best friend since first grade from [place]. He does not smoke cigarettes and quit back in the 1960s. No alcohol or illicit drugs. FAMILY HISTORY: Prostate cancer, abdominal aortic aneurysm, breast cancer, and heart attacks run in the family. ALLERGIES: PENICILLINS. REVIEW OF SYSTEMS: He is just nauseated. He has diarrhea with metformin. No diarrhea recently. He has been vomiting. Even the water that he took in has caused him to vomit it back up. He believes it is probably the Protonix that he was given; however, he is on multiple nauseated History And Physical [address] [address] NAME: SASKIA ENNIS : 42 STATUS : ADM Zachery PAT#: [id number] AGE: 76 ADM/REG DATE : 10/31/16 MR#: [id number] REPORT SERV DATE: 10/31/16 DICTATED BY: CHRIS PANTOJA DATE: 10/31/16 REPORT STATUS : Draft TRANSCRIBED BY: SHIVA DATE: 10/31/16 medications. He has had no swelling in the lower extremities. No melena or hematemesis. He has some dizziness when he stands up. No fever, chills, night sweats, or unilateral weakness. No melena. The remainder of the review of systems is negative. HOME MEDICATIONS: Include the followin. Acetaminophen 650 mg p.o. p.r.n. 2. Vitamin D 5000 units 2 a day. 3. Plavix 75 mg p.o. at bedtime. 4. Jardiance 10 mg p.o. daily. 5. Gemfibrozil 600 mg p.o. at bedtime. 6. Glyburide 5 mg p.o. with supper. 7. Isosorbide mononitrate 60 mg ER one p.o. daily. 8. Levothyroxine 150 mcg p.o. daily. 9. Nitroglycerin sublingually p.r.n. 10.Pantoprazole 40 mg p.o. b.i.d. 11.Pravastatin 10 mg p.o. at bedtime. 12.Ramipril 10 mg at bedtime. 13.[place]umet with breakfast and supper. 14.Flomax 0.4 mg p.o. at bedtime. 15.Warfarin 5 mg on Saturday, Saturday, and Saturday, and 7.5 on the other days. PHYSICAL EXAMINATION: GENERAL: Older appearing white male, in no acute distress, gaunt facies. VITAL SIGNS: His blood pressure was 140/70 with a heart rate of 78, respiratory rate 16, afebrile. HEENT: EOMI. Sclerae clear. Conjunctivae slightly pale. NECK: No bruit without any JVD. CHEST: Clear to A and P. HEART: Irregularly irregular S1, S2 without murmur, gallop, or click. ABDOMEN: Soft, nontender. Bowel sounds positive. EXTREMITIES: Have no edema. Distal pulses are trace, dorsalis pedis and posterior tibial with a more palpable posterior tibial pulse on the left than the right. NEUROLOGIC: He withdraws to plantar stimulation. Bandage Winding Machine Operator is equal and symmetric bilaterally. Coordination intact. He has no tremor. He is symmetric and equal neurologically. LYMPHATICS: There is no adenopathy palpable. SKIN: Without rash, ecchymosis, or bruising. LABORATORY DATA: His urinalysis did show 43 white cells per high-powered field with 4 rbc's, many bacteria. His glucose is greater than 500 mg%. His specific gravity is 1.021, pH of 5. Sodium 132, potassium 3.9, creatinine 1.35, and BUN is 25. Liver tests were normal. Troponin less than 0.02. His hemoglobin was 11.1, hematocrit 33.0, MCV was 79.3, white count 6.8, and platelets were 299,000. His PTT 40. INR was 1.3. ASSESSMENT: 1. Possible urinary tract infection, likely hospital-acquired, light pyuria. We will History And Physical [address] [address] NAME: SASKIA ENNIS : 42 STATUS : ADM Zachery PAT#: [id number] AGE: 76 ADM/REG DATE : 10/31/16 MR#: [id number] REPORT SERV DATE: 10/31/16 DICTATED BY: CHRIS PANTOJA DATE: 10/31/16 REPORT STATUS : Draft TRANSCRIBED BY: MODL DATE: 10/31/16 check culture, start on Levaquin empirically orally. 2. Vomiting everything he ate, mostly mucus, no blood. We will try Reglan as he has a longstanding history of diabetes type 2. 3. Coagulopathy on Coumadin and Plavix. He probably could do without the Coumadin if he has documented bleeding again. 4. AVMs of the gastrointestinal tract. 5. Generalized weakness. 6. Adult onset diabetes mellitus. 7. Hypertension. 8. Peripheral vascular disease. 9. History of abdominal aortic aneurysm. PLAN: We will give him a liter of IV fluid. Recheck the BMP in the morning. We will start Reglan and stop the Protonix as he believes this is the offending agent. Continue the Coumadin. Repeat the BMP in the morning. Use sliding scale insulin. Stop the Janumet because of the nausea and vomiting and elevation of creatinine slightly over the discharge level. We will stop the Protonix and use Pepcid and the Carafate. We will stop the Jardiance and use subcutaneous insulin by sliding scale. The patient should be able to go home in the morning if he is able to tolerate this new regimen. DB/MODL Chris Pantoja M.D. / [id number] CC: Ld Larson Jr, MD Froilan B. Joves, MD David Wendt, M.D. Christopher Lesar, M.D.
[~2016-10-31 07:44] MED LIST changes: +ALTACE10 MG PO; +D 5000 PO; +JARDI10T PO; +T PO
[2016-10-31 08:16] LABS: BASOPHILS 0.1 %; BASOPHILS ABSOLUTE 0.01 10/3/uL (0.0-0.16); EOSINOPHILS 0 %; ER CBC TAT 0 Hrs 03 Mins; HEMOGLOBIN 11.1 g/dL (13.6-17.8); IMMATURE GRANULOCYTES 0.3 %; LYMPHOCYTES 6.3 %; LYMPHOCYTES ABSOLUTE 0.43 10/3/uL (0.67-4.30); MEAN CORPUS HGB CONC 33.6 g/dL (32.0-36.0); MEAN CORPUSCULAR HEMOGLOB 26.7 pg (26.0-34.0); MEAN CORPUSCULAR VOLUME 79.3 fL (80-100); MEAN PLATELET VOLUME 8.4 fL (9.2-13.0); MONOCYTES 6.6 %; MONOCYTES ABSOLUTE 0.45 10/3/uL (0.21-1.20); NEUTROPHILS 86.7 %; RBC DISTRIBUTION WIDTH 15.2 % (12.0-16.0); RED CELL COUNT 4.16 10/6/uL (4.7-6.1); WHITE BLOOD CELLS 6.8 10/3/uL (4.5-10.5)
[2016-10-31 08:17] LABS: IMMATURE GRANULOCYTES ABSOLUTE 0.02 10/3/uL (0.0-0.11); MANUAL DIFF NO %; PLATELET COUNT 299 10/3/uL (150-400)
[2016-10-31 08:32] LABS: INTERNATIONAL NORMAL RATI 1.3 UNITS (-); PROTIME (NOT ORD) 16.3 SEC (12.0-14.5)
[2016-10-31 08:33] LABS: ER DIFF TAT 0 Hrs 20 Mins; LYMPHOCYTES 9 %; LYMPHOCYTES ABSOLUTE (CALC) 0.61 10/3/uL (0.67-4.30); MONOCYTES 2 %; MONOCYTES ABSOLUTE (CALC) 0.14 10/3/uL (0.21-1.20); NEUTROPHILS ABSOLUTE (CALC) 6.05 10/3/uL (2.02-8.40); PLATELET ESTIMATE ADQ (ADEQUATE); RBC MORPHOLOGY NORM (NORMAL); SEGMENTED NEUTROPHIL (0) 89 %; TOTAL NUCLEATED CELLS 100
[2016-10-31 08:34] LABS: PARTIAL THROMBO TIME 40.4 SEC (22.5-37.2)
[2016-10-31 08:39] LABS: ALBUMIN 3.1 G/DL (3.5-5.0); CALCIUM, SERUM 9.1 MG/DL (8.5-10.4); CHEST PAIN PROFILE TAT 0 Hrs 26 Mins; CO2 (CARBON DIOXIDE) 23 MMOL/L (24-34); CREATININE 1.35 MG/DL (0.70-1.30); GFR AFRICAN AMERICAN 59 ML/MIN (>=60); GFR NON AFRICAN AMERICAN 51 ML/MIN (>=60); GLUCOSE, SERUM 176 MG/DL (60-99); POTASSIUM, SERUM 3.9 MMOL/L (3.5-5.3); SGOT(AST) 21 U/L (5-40); SGPT(ALT) 24 U/L (5-65); TOTAL BILIRUBIN 0.7 MG/DL (0-1.2); TROPONIN I <0.02 NG/ML (<0.05)
[2016-10-31 08:40] LABS: ALKALINE PHOSPHATASE 46 U/L (45-117); BUN (BLOOD UREA NITROGEN) 25 MG/DL (6-23); CHLORIDE, SERUM 98 MMOL/L (96-112); DIRECT BILIRUBIN 0.3 MG/DL (0.0-0.4); INDIRECT BILIRUBIN(NOT ORDER) 0.4 MG/DL (0.1-0.9); SODIUM, SERUM 132 MMOL/L (135-148); TOTAL PROTEIN 7.9 G/DL (6.0-8.5)
[2016-10-31 08:52] LABS: ASCORBIC ACID (UR NOT ORDER) NEG (NEG); BILIRUBIN, URINE NEGATIVE (NEG); ER URINALYSIS TAT 0 Hrs 18 Mins; KETONE, URINE TRACE MG/DL (NEG); LEUKOCYTE ESTERASE(NOT OR MOD (NEG); NITRITE (URINE) POS (NEG); WBC (NOT ORDERED) (RFLEX) 43 (0-5)
[2016-10-31] MEDS ORDERED: PROTONIX PO (10:32)
[2016-11-01 04:52] LABS: HEMOGLOBIN 10.1 g/dL (13.6-17.8); MEAN CORPUS HGB CONC 34.7 g/dL (32.0-36.0); MEAN CORPUSCULAR HEMOGLOB 27.7 pg (26.0-34.0); MEAN CORPUSCULAR VOLUME 79.7 fL (80-100); MEAN PLATELET VOLUME 9.5 fL (9.2-13.0); PLATELET COUNT 270 10/3/uL (150-400); RBC DISTRIBUTION WIDTH 15.2 % (12.0-16.0); RED CELL COUNT 3.65 10/6/uL (4.7-6.1); WHITE BLOOD CELLS 5.5 10/3/uL (4.5-10.5)
[2016-11-01 04:54] LABS: HEMATOCRIT 29.1 % (40.0-51.0); MANUAL DIFF YES %
[2016-11-01 04:57] LABS: INTERNATIONAL NORMAL RATI 1.3 UNITS (-); PROTIME (NOT ORD) 16.2 SEC (12.0-14.5)
[2016-11-01 05:05] LABS: BUN (BLOOD UREA NITROGEN) 21 MG/DL (6-23); CALCIUM, SERUM 8.7 MG/DL (8.5-10.4); CHLORIDE, SERUM 101 MMOL/L (96-112); CO2 (CARBON DIOXIDE) 22 MMOL/L (24-34); CREATININE 1.25 MG/DL (0.70-1.30); GFR AFRICAN AMERICAN 65 ML/MIN (>=60); GFR NON AFRICAN AMERICAN 56 ML/MIN (>=60); GLUCOSE, SERUM 139 MG/DL (60-99); SODIUM, SERUM 134 MMOL/L (135-148)
[2016-11-01 05:35] LABS: BAND NEUTROPHILS 2 %; LYMPHOCYTES 8 %; LYMPHOCYTES ABSOLUTE (CALC) 0.44 10/3/uL (0.67-4.30); MONOCYTES 3 %; MONOCYTES ABSOLUTE (CALC) 0.17 10/3/uL (0.21-1.20); PLATELET ESTIMATE ADQ (ADEQUATE); RBC MORPHOLOGY NORM (NORMAL); SEGMENTED NEUTROPHIL (0) 87 %; TOTAL NUCLEATED CELLS 100
[2016-11-02 05:16] LABS: BASOPHILS 0.2 %; BASOPHILS ABSOLUTE 0.01 10/3/uL (0.0-0.16); EOSINOPHILS 1.9 %; EOSINOPHILS ABSOLUTE 0.08 10/3/uL (0.0-0.53); HEMATOCRIT 30.1 % (40.0-51.0); HEMOGLOBIN 10.1 g/dL (13.6-17.8); IMMATURE GRANULOCYTES 0.5 %; IMMATURE GRANULOCYTES ABSOLUTE 0.02 10/3/uL (0.0-0.11); LYMPHOCYTES ABSOLUTE 0.43 10/3/uL (0.67-4.30); MEAN CORPUS HGB CONC 33.6 g/dL (32.0-36.0); MEAN CORPUSCULAR HEMOGLOB 26.3 pg (26.0-34.0); MEAN CORPUSCULAR VOLUME 78.4 fL (80-100); MEAN PLATELET VOLUME 8.6 fL (9.2-13.0); MONOCYTES 5.8 %; MONOCYTES ABSOLUTE 0.25 10/3/uL (0.21-1.20); NEUTROPHILS 81.6 %; NEUTROPHILS ABSOLUTE 3.49 10/3/uL (2.02-8.40); PLATELET COUNT 269 10/3/uL (150-400); RBC DISTRIBUTION WIDTH 15.1 % (12.0-16.0); RED CELL COUNT 3.84 10/6/uL (4.7-6.1); WHITE BLOOD CELLS 4.3 10/3/uL (4.5-10.5)
[2016-11-02 05:20] LABS: MANUAL DIFF NO %
[2016-11-02 05:22] LABS: BUN (BLOOD UREA NITROGEN) 19 MG/DL (6-23); CALCIUM, SERUM 8.9 MG/DL (8.5-10.4); CHLORIDE, SERUM 96 MMOL/L (96-112); CO2 (CARBON DIOXIDE) 26 MMOL/L (24-34); CREATININE 1.16 MG/DL (0.70-1.30); GFR AFRICAN AMERICAN 71 ML/MIN (>=60); GFR NON AFRICAN AMERICAN 61 ML/MIN (>=60); GLUCOSE, SERUM 128 MG/DL (60-99); POTASSIUM, SERUM 3.6 MMOL/L (3.5-5.3); SODIUM, SERUM 129 MMOL/L (135-148)
[2016-11-02 05:25] LABS: INTERNATIONAL NORMAL RATI 1.4 UNITS (-); PROTIME (NOT ORD) 16.8 SEC (12.0-14.5)
[2016-11-02 17:14] LABS: OSMOLALITY, URINE 768 MOSM/KG (50-1200)
[2016-11-02 17:16] LABS: SODIUM, URINE 26 MEQ/L
[2016-11-03 05:45] LABS: INTERNATIONAL NORMAL RATI 1.5 UNITS (-); PROTIME (NOT ORD) 18.1 SEC (12.0-14.5)
[2016-11-03 05:58] LABS: BUN (BLOOD UREA NITROGEN) 16 MG/DL (6-23); CALCIUM, SERUM 8.7 MG/DL (8.5-10.4); CHLORIDE, SERUM 97 MMOL/L (96-112); CO2 (CARBON DIOXIDE) 24 MMOL/L (24-34); CREATININE 0.94 MG/DL (0.70-1.30); GFR AFRICAN AMERICAN 92 ML/MIN (>=60); GFR NON AFRICAN AMERICAN 79 ML/MIN (>=60); GLUCOSE, SERUM 110 MG/DL (60-99); POTASSIUM, SERUM 3.4 MMOL/L (3.5-5.3); SODIUM, SERUM 130 MMOL/L (135-148)
[2016-11-03] MEDS ORDERED: PEP20 PO (21:29)
[2016-11-03] MEDS ORDERED: SUCR PO (21:30)
[2016-11-03] MEDS ORDERED: LEVAQUIN750 MG PO (21:30)
[2016-12-17] MEDS ORDERED: ACET500CAP PO (23:00)
[2016-12-17] MEDS ORDERED: CLEOCIN300 MG PO (23:00)
[2016-12-17] MEDS ORDERED: JARDI10T PO (23:01)
[2016-12-17] MEDS ORDERED: LOPID6 PO (23:01)
[2016-12-17] MEDS ORDERED: PLAVIX PO (23:01)
[2016-12-17] MEDS ORDERED: DIABETA5 PO (23:02)
[2016-12-17] MEDS ORDERED: ALTACE10 MG PO (23:02)
[2016-12-17] MEDS ORDERED: PRAV10 PO (23:02)
[2016-12-17] MEDS ORDERED: IMDUR60 PO (23:02)
[2016-12-17] MEDS ORDERED: LEVOTHYROXIN150 MCG PO (23:02)
[2016-12-17] MEDS ORDERED: COUMADIN7.5 MG PO (23:03)
[2016-12-17] MEDS ORDERED: JANUMET1 TA1 PO (23:03)
[2016-12-17] MEDS ORDERED: C5 PO (23:03)
[2016-12-17] MEDS ORDERED: FLOMAX4 PO (23:03)
== END 2016-11-03 22:30 | disposition home or self-care (01) | DRG 690 ==
LOC: ER 07:44 → CDU1 11:40 → CDU2 11:59 → 4SO 11-03 14:36
PROVIDERS: Emergency Medicine; Internal Medicine
DX: N39.0 Urinary tract infection, site not specified (principal); I48.2 Chronic atrial fibrillation; E11.9 Type 2 diabetes mellitus without complications; E87.1 Hypo-osmolality and hyponatremia; I10 Essential (primary) hypertension; B96.20 Unspecified Escherichia coli [E. coli] as the cause of diseases classified elsewhere; D50.0 Iron deficiency anemia secondary to blood loss (chronic); Y95 Nosocomial condition; T47.1X5A Adverse effect of other antacids and anti-gastric-secretion drugs, initial encounter; Z79.02 Long term (current) use of antithrombotics/antiplatelets; Z79.01 Long term (current) use of anticoagulants; Z79.84 Long term (current) use of oral hypoglycemic drugs; K55.20 Angiodysplasia of colon without hemorrhage; Y92.009 Unspecified place in unspecified non-institutional (private) residence as the place of occurrence of the external cause; R53.1 Weakness; Z95.5 Presence of coronary angioplasty implant and graft; Z95.820 Peripheral vascular angioplasty status with implants and grafts; I25.10 Atherosclerotic heart disease of native coronary artery without angina pectoris; Z87.891 Personal history of nicotine dependence; I25.2 Old myocardial infarction
CPT/HCPCS: 71010; 74176; 78264; 80048; 80076; 81001; 82150; 82962; 83690; 83735; 83930; 83935; 84300; 84484; 85025; 85610; 85730; 87077; 87086; 87186; 93005; 96374; 96375; 99285; A9270-GY; A9541; J1170; J2405